=== PATIENT | female | born 1985 | race African-American/Black ===

== ENCOUNTER → 2017-05-02 | Outpatient (CLI) | payer OTHER ==
--- NOTE | 2017-05-02 09:08 | KCIC ---
Left breast ultrasound: Reason for examination: Left breast lump on clinical exam. Ultrasound examination was performed in the area of clinical concern and at the left axilla. In the 1:30 position 16 cm from the nipple and corresponding to the area of clinical concern, there is a hypoechoic lesion measuring approximately 1.5 x 0.9 x 0.5 cm in greatest dimensions. There is some echogenicity centrally. The appearance suggests an intramammary lymph node. No other cystic or solid lesions are seen. No abnormal periosteal lymph nodes are seen in the axilla. IMPRESSION: Probable intramammary lymph node at the 1:30 position. No suspicious abnormality seen. Recommend reevaluation with ultrasound in 6 months. BI-RADS Category 3: Probably Benign. "Our facility is accredited by the [employer] Mammography Program." This patient's information has been entered into a reminder system for the patient to be notified with the results of her examination and a target date for the next mammogram. Electronically signed by: Pretty Borjas MD (05/02/2017 9:05 AM) [id number]
== END | disposition home or self-care (01) ==
LOC: KCIC US 08:00
PROVIDERS: ATTEND Obstetrics & Gynecology
DX: N63 Unspecified lump in breast (principal)
CPT/HCPCS: 76641